=== PATIENT | male | born 1980 | race Caucasian/White ===

== ENCOUNTER 2017-03-08 02:15 | Emergency (ER) | payer OTHER ==
[~2017-03-08] VITALS: Ht 185.4 cm; Wt 85.3 kg
[2017-03-08] MEDS ORDERED: IBUPROFEN 600 MG TAB PO ONE (03:15)
[2017-03-08] MEDS ORDERED: cefTRIAXone SOD 1,000 MG VL IM ONE (07:30)
[2017-03-08] MEDS ORDERED: BACITRACIN TOP OINT 1 UD PKG TOP ONE (07:30)
[2017-03-08] MEDS ORDERED: TETANUS-DIPTH-ACEL PERTUSSIS 0.5ML SYRG IM ONE (07:30)
[2017-03-08] MEDS ORDERED: LIDOCAINE 1% HCL (LOCAL ANESTH.) INJ 20ML MDV IJ ONE (07:30)
[2017-03-08] MEDS ORDERED: cefTRIAXone SOD 1,000 MG VL ONE (07:54)
[2017-03-08 08:00] VITALS: BP 126/74
== END 2017-03-08 08:16 | disposition home or self-care (01) ==
LOC: ER 02:20
DX: S61.213A Laceration without foreign body of left middle finger without damage to nail, initial encounter (principal); W22.8XXA Striking against or struck by other objects, initial encounter; Y93.89 Activity, other specified; Y99.0 Civilian activity done for income or pay; Y92.69 Other specified industrial and construction area as the place of occurrence of the external cause
CPT/HCPCS: 12002; 73130; 90471; 90715; 96372; 99284; J0696; J2001